=== PATIENT | female | born 1955 | race Caucasian/White ===

== ENCOUNTER 2016-11-11 21:31 | Emergency (ER) | payer MEDICARE ==
[2016-11-11 22:22] LABS: BASO # 0.1 K/mm3 (0.0-0.2); EOS % 0.3 % (0.0-3.0); LARGE UNSTAINED CELL # 0.1 K/mm3 (0.0-0.4); LARGE UNSTAINED CELL % 1.1 % (0.0-4.0); LYMPH # 2.8 K/mm3 (1.5-4.5); LYMPH % 24.1 % (24.0-44.0); MEAN CORPUSCULAR HEMOGLOBIN 26.6 pg (27.0-33.0); MEAN CORPUSCULAR VOLUME 82.9 fl (80.0-96.0); MONO # 0.5 K/mm3 (0.0-0.8); MONO % 4.2 % (0.0-5.0); NEUTROPHILS # 7.8 K/mm3 (1.8-7.7); NEUTROPHILS % 69.3 % (36.0-66.0); PLATELET COUNT, AUTOMATED 208 k/mm3 (150-450); RED CELL DISTRIBUTION WIDTH 13.5 % (11.5-14.5); WHITE BLOOD COUNT 11.2 K/mm3 (4.0-10.0)
--- NOTE | 2016-11-11 22:30 | REPUSA ---
HISTORY: Headache COMPARISON: None. TECHNIQUE: Multiple thin-section contiguous helically-acquired, axially-displayed computed tomographic images of the brain were obtained from the posterior fossa continued through the supratentorial structures, wi th images reviewed at brain, intermediate, and bone windows. FINDINGS: No acute intracranial hemorrhage or evidence of acute transcortical ischemia. No suspicious intra or extra axial fluid collection, middling shift, or evidence of hydrocephalus. The orbits and sella demonstrate no suspicious abnormality. Thickening of of the ethmoidal sinuses and small fluid levels in the sphenoid sinuses most consistent with sinusitis in proper clinical context. Remaining paranasal sinuses, mastoid air cells, and middl e ear cavities are patent. Osseous structures and extra cranial soft tissues demonstrate no abnormalities. IMPRESSION: No acute intracranial abnormality. Thank you for your kind referral of this patient.
[2016-11-11] MEDS ORDERED: METOCLOPRAMIDE INJ 10MG/2ML VIAL (J2765) As Ordered ONE (22:36)
[2016-11-11 22:48] LABS: ANION GAP 12 MEQ/L (8-16); BLOOD UREA NITROGEN 20 MG/DL (7-18); CARBON DIOXIDE LEVEL 23 MEQ/L (21-32); CHLORIDE LEVEL 102 MEQ/L (98-107); GLOMERULAR FILTRATION RATE > 60.0 (>51); GLUCOSE, FASTING 300 MG/DL (70-105); SODIUM LEVEL 137 MEQ/L (136-145)
[2016-11-11] MEDS ORDERED: KETOROLAC 30 MG/ML VIAL (J1885) As Ordered ONE (23:22)
--- NOTE | 2016-11-12 01:01 | EDDOCDS ---
Physician Documentation [facility] Name: Blanca Choe Age: 60 yrs Sex: Female : 1955 Arrival Date: 11/11/2016 Time: 21:31 Bed 9 Private MD: NO PRIMARY PHYSICIAN, . Disposition: 11/12 00:35 Critical Care: Critical care not applicable. pc Disposition: 11/12/16 00:42 Discharged to Home/Self Care. Impression: Acute ethmoidal sinusitis, Headache - due to same. - Condition is Stable. - Discharge Instructions: Sinus Headache, Sinusitis, Adult. - Prescriptions for Fluticasone 50 mcg/actuation Nasal [place], Suspension - inhale 1 spray by INTRANASAL route 2 times per day; 1 bottle. Mucinex 600 mg - take 1 tablet by ORAL route 2 times per day; 30 tablet. - Medication Reconciliation, Local Pharmacy Hours form. - Follow up: Private Physician; When: Upon returning to your home town; Reason: Recheck today's complaints, Continuance of care. - Problem is an ongoing problem. - Symptoms have improved. HPI: 11/11 22:03 This 60 yrs old Female presents to ER via Walkin/Carried/Asstd with complaints of High pc Blood Pressure. 22:03 The history is obtained from the patient, the patient's family/friend. He daughter pc translates for her. She has had a nonproductive cough for 2 weeks, without fevers or chills. She was seen at an urgent care and started on prednisone and Zithromax without effect. She was reseen by the same and started on Augmentin and prednisone again. Her FSBS have been running high because of the steroids and her only DM med is metformin. She has been "coughing so much that she is having headaches". Her BP has been up a few times per day when she has the headache but normalizes when her headache resolves. She denies any nausea or vomiting, focal neuro deficits. She has not been taking any OTCs for hew URI and has not taken anything for he headaches. She had elevated BP a few years ago and was admitted to a hospital in [place], and per her daughter, an MRI showed an area of old stroke. 22:14 She did not undergo any testing whatsoever at the urgent care. pc Historical: - Allergies: Levaquin (Rash); Cymbalta (Vomit); Morphine (Anaphylaxis); - Home Meds: 1. Augmentin 875-125 mg Oral tab every 12 hours 2. metformin 500 mg Oral tab 1 tab 2 times per day 3. Prilosec 40 mg Oral cpDR 1 cap once daily 4. aspirin 81 mg Oral tab 1 tab once daily 5. Fish Oil 500 mg Oral cap daily - PMHx: Diabetes - NIDDM: controlled; CVA on MRI; - PSHx: Appendectomy; - The history from nurses notes was reviewed: and elements of the historical information I have obtained differs from that reported to nursing. - Social history: Smoking status: Patient states former smoker of tobacco. No barriers to communication noted, The patient speaks fluent Faroese. - : The pt / caregiver states he / she is not on anticoagulants. Home medication list is obtained from the patient. - Hospitalizations: : No recent hospitalization is reported. - Exposure Risk Screening:: None identified. - Immunization history:: Last tetanus immunization: up to date. Flu vaccine is not up to date. - Family history: Not pertinent. - Social history:: the patient is a former smoker, the patient does not drink alcohol. ROS: 22:09 All systems are negative except as listed. pc Exam: 22:09 General Appearance: alert, the patient is in mild distress. pc 22:09 EENT: normal eye inspection, ears, nose and throat normal, pharynx normal, mucous membranes moist 22:09 Neck: The exam reveals no acute abnormalities. ROM is normal and painless. No nuchal rigidity is noted.. 22:09 Respiratory: no respiratory distress, normal breath sounds, nonproductive cough. 22:09 CVS: regular pulse rate, regular rhythm, normal S1 and S2, no murmurs, strong peripheral pulses. 22:09 Abdomen: soft, non-tender, no organomegaly, normal bowel sounds. 22:09 Back: normal inspection. 22:09 Skin: skin color is normal, warm, dry. 22:09 Extremities: The extremities have a grossly normal appearance, are non-tender, without acute ROM abnormalities, no pedal edema. 22:09 Neuro: oriented x 3, cranial nerves normal as tested, no motor deficits, no sensory deficits, normal gait, Cerebellar function: normal finger to nose testing, Romberg testing is negative, Deep tendon reflexes are normal. 22:09 Psych: normal mood. Vital Signs: 21:33 BP 196 / 93; Pulse 83; Resp 18 S; Temp 98.5(O); Pulse Ox 97% on R/A; Weight 88.45 kg / gr2 195 lbs (R); Height 5 ft. 5 in. (165.10 cm) (R); Pain 6/10; 22:05 BP 169 / 80 (auto/); Resp 18 S; Pulse Ox 96% on R/A; af2 22:09 Pulse 86 MON; af2 22:20 BP 176 / 85 (auto/); af2 22:28 Pulse 72 MON; af2 22:35 BP 152 / 82 (auto/); af2 22:36 Pulse 72 MON; af2 22:50 BP 167 / 74 (auto/); af2 22:51 Pulse 78 MON; af2 23:05 BP 149 / 68 (auto/); af2 23:06 Pulse 78 MON; af2 23:20 BP 157 / 74 (auto/); af2 23:21 Pulse 68 MON; af2 23:35 BP 128 / 64 (auto/); af2 23:36 Pulse 68 MON; af2 23:50 BP 145 / 72 (auto/); af2 23:51 Pulse 68 MON; af2 11/12 00:05 BP 138 / 72 (auto/); mlc 00:06 Pulse 72 MON; mlc 00:20 BP 154 / 71 (auto/); mlc 00:21 Pulse 70 MON; mlc 00:35 BP 137 / 66 (auto/); mlc 00:36 Pulse 62 MON; mlc 00:59 BP 136 / 70; Pulse 62; Resp 18; Temp 97.1; Pulse Ox 95% ; Pain 4/10; mlc 11/11 21:33 Body Mass Index 32.45 (88.45 kg, 165.10 cm) gr2 MDM: 11/11 21:59 IV Saline Lock ordered. pc 21:59 Obtain sample by nasopharyngeal swab ordered. pc 21:59 Metoclopramide 10 mg IV at 40 mg/hr once over 15 mins ordered. pc 22:00 CBC with Diff Ordered. EDMS 22:00 MED Profile Ordered. EDMS 22:00 A1C Ordered. EDMS 22:00 -Influenza A&B Rapid Antigen - Nose Ordered. EDMS 22:01 Chest, 2 View (pa\\E\\lat) Ordered. EDMS 22:01 CT Head Without Contrast Ordered. EDMS 22:15 Differential Diagnosis: URI, COPD, Pneumonia, post-tussive intermittent headache, pc transient elevated BP, type 2 DM with elevated glucose due to prednisone. Plan: labs, imaging, meds. 23:01 CBC with Diff Reviewed. pc 23:01 MED Profile Reviewed. pc 23:01 A1C Reviewed. pc 23:01 -Influenza A&B Rapid Antigen - Nose Reviewed. pc 23:12 Test interpretation: interpreted by Radiologist and personally reviewed, Head CT; pc ethmoid sinusitis, else nad. 23:13 ketorolac 30 mg IVP once ordered. pc 23:16 Financial registration complete. pm4 23: [facility] Payment Agreement was scanned into [employer] and attached to record. pm4 11/12 00:19 Data reviewed: old medical records, vital signs, nurses notes, lab test results, all pc radiology studies and available results. Test interpretation: LAB - all labs as ordered have been reviewed, interpreted and considered in the overall management of the clinical presentation;. 00:19 Document pain score please ordered. pc 00:20 CT Head Without Contrast Reviewed. pc 00:35 The patient has been re-examined and re-evaluated. The patient's symptoms have markedly pc improved after treatment. Disposition: The historical points, examination findings, and any diagnostic results supporting the provided diagnosis, were discussed with the patient or legal guardian. The need for outpatient follow up with the provider listed on their discharge instructions was discussed. They were encouraged to return to [facility], or the nearest ED, if symptoms worsen/persist, or for any other questions/concerns. Administered Medications: 11/11 22:42 Drug: Metoclopramide 10 mg [metoclopramide 5 mg/mL injection solution] Route: IV; Rate: mlc 40 mg/hr; Infused Over: 15 mins; Site: left antecubital; 23:30 Drug: ketorolac 30 mg [ketorolac 30 mg/mL (1 mL) injection solution (1 mL)] Route: IVP; af2 Site: left antecubital; Signatures: Dispatcher [employer] EDNM Bakari Mane MD MD pc Soosairaj, Rosemary, RN RN rs3 Jyoti Noguera RN RN [facility] [place] Cristopher Rocha, Reg Reg pm4 Jeannette Murphy RN af2 The chart was reviewed and I authenticate all verbal orders and agree with the evaluation and treatment provided.Corrections: (The following items were deleted from the chart) 23:13 23:12 Test interpretation: interpreted by Radiologist and personally reviewed, Head CT; pc no acute disease, pc Attachments: 23:26 [facility] Payment Agreement pm4 MTDD
--- NOTE | 2016-11-12 01:01 | EDDOCDS ---
Nurse's Notes [facility] Name: Blanca Choe Age: 60 yrs Sex: Female : 1955 Arrival Date: 11/11/2016 Time: 21:31 Bed 9 Private MD: NO PRIMARY PHYSICIAN, . Diagnosis: Acute ethmoidal sinusitis;Headache-due to same Presentation: 11/11 21:37 Presenting complaint: daughter states head ache/pressure for 2 days worse today. Was rs3 seen at urgent care twice last week given Zithromax, prednisone with no relief. yesterday given Augmentin. H/o stroke. Adult Sepsis Screening: The patient does not have new or worsening altered mentation. Patient's respiratory rate is less than 22. Systolic blood pressure is greater than 100. Patient has a qSOFA score of 0- Negative Sepsis Screen. Suicide/Homicide risk assessment- the patient denies having any suicidal and/or homicidal ideations and does not present with any other emotional, behavioral or mental health complaints. Status: Patient is not a custodial services manager or dependent. Transition of care: patient was not received from another setting of care. 21:37 Acuity: LUIS ANTONIO Level 3 rs3 21:37 Method Of Arrival: Walkin/Carried/Asstd rs3 Triage Assessment: 21:42 General: Appears in no apparent distress. Pain: Location: forehead. Pt Declines HIV rs3 testing. Historical: - Allergies: Levaquin (Rash); Cymbalta (Vomit); Morphine (Anaphylaxis); - Home Meds: 1. Augmentin 875-125 mg Oral tab every 12 hours 2. metformin 500 mg Oral tab 1 tab 2 times per day 3. Prilosec 40 mg Oral cpDR 1 cap once daily 4. aspirin 81 mg Oral tab 1 tab once daily 5. Fish Oil 500 mg Oral cap daily - PMHx: Diabetes - NIDDM: controlled; CVA on MRI; - PSHx: Appendectomy; - The history from nurses notes was reviewed: and elements of the historical information I have obtained differs from that reported to nursing. - Social history: Smoking status: Patient states former smoker of tobacco. No barriers to communication noted, The patient speaks fluent Ukrainian. - : The pt / caregiver states he / she is not on anticoagulants. Home medication list is obtained from the patient. - Hospitalizations: : No recent hospitalization is reported. - Exposure Risk Screening:: None identified. - Immunization history:: Last tetanus immunization: up to date. Flu vaccine is not up to date. - Family history: Not pertinent. - Social history:: the patient is a former smoker, the patient does not drink alcohol. Screenin:32 Screening information is obtained from the patient. Fall risk: No risks identified. af2 Assistance ADL's: requires no assistance with activities of daily living. Abuse/DV Screen: The patient / caregiver reports he/she is: not in a situation that causes fear, pain or injury. Nutritional screening: No deficits noted. Advance Directives: Currently, there is no health care proxy. home support is adequate. Assessment: 22:42 General: Appears in no apparent distress, comfortable, pt resting comfortably in bed, mlc resp easy/unlabored. IV fluids infusing per order. 23:30 General: Appears in no apparent distress, comfortable, Behavior is cooperative, pt af2 resting on stretcher quietly, family continues at bedside. medicated for pain per order.. 11/12 00:31 Reassessment: Patient appears in no apparent distress at this time. pt resting mlc comfortably in bed. pt talking on phone.. Pain: Pain currently is 4 out of 10 on a pain scale. 00:59 General: Appears in no apparent distress, comfortable, Behavior is cooperative. Pain: mlc Pain currently is 4 out of 10 on a pain scale. Neurological: Level of Consciousness is awake, alert, Oriented to person, place, time. Respiratory: Airway is patent Respiratory effort is even, unlabored, Respiratory pattern is regular. Derm: Skin is normal. Vital Signs: 11/11 21:33 BP 196 / 93; Pulse 83; Resp 18 S; Temp 98.5(O); Pulse Ox 97% on R/A; Weight 88.45 kg gr2 (R); Height 5 ft. 5 in. (165.10 cm) (R); Pain 6/10; 22:05 BP 169 / 80 (auto/); Resp 18 S; Pulse Ox 96% on R/A; af2 22:09 Pulse 86 MON; af2 22:20 BP 176 / 85 (auto/); af2 22:28 Pulse 72 MON; af2 22:35 BP 152 / 82 (auto/); af2 22:36 Pulse 72 MON; af2 22:50 BP 167 / 74 (auto/); af2 22:51 Pulse 78 MON; af2 23:05 BP 149 / 68 (auto/); af2 23:06 Pulse 78 MON; af2 23:20 BP 157 / 74 (auto/); af2 23:21 Pulse 68 MON; af2 23:35 BP 128 / 64 (auto/); af2 23:36 Pulse 68 MON; af2 23:50 BP 145 / 72 (auto/); af2 23:51 Pulse 68 MON; af2 11/12 00:05 BP 138 / 72 (auto/); mlc 00:06 Pulse 72 MON; mlc 00:20 BP 154 / 71 (auto/); mlc 00:21 Pulse 70 MON; mlc 00:35 BP 137 / 66 (auto/); mlc 00:36 Pulse 62 MON; mlc 00:59 BP 136 / 70; Pulse 62; Resp 18; Temp 97.1; Pulse Ox 95% ; Pain 4/10; mlc 11/11 21:33 Body Mass Index 32.45 (88.45 kg, 165.10 cm) gr2 Vitals: 11/11 21:33 Log In Time: November 11, 2016 at 21:33. RN notified that patient meets Red Flag gr2 criteria. ED Course: 21:32 Patient visited by Kimberly Lora. gr2 21:32 Patient moved to Waiting gr2 21:33 NO PRIMARY PHYSICIAN, . is Private Physician. gr2 21:37 Patient visited by Kimberly Lora. gr2 21:37 Patient moved to Pre RCE gr2 21:40 Triage Initiated rs3 21:44 Jeannette Murphy RN is Primary Nurse. kmg1 21:44 Patient moved to 9 kmg1 21:48 Bakari Mane MD is Attending Physician. pc 21:57 Patient visited by Bakari Mane MD. pc 22:11 A1C Sent. af2 22:11 MED Profile Sent. af2 22:11 CBC with Diff Sent. af2 22:12 Patient visited by Jeannette Murphy RN. af2 22:12 Inserted saline lock: 18 gauge in left antecubital area and blood collected. The af2 patient tolerated the procedure well. 22:28 -Influenza A&B Rapid Antigen - Nose Sent. tm5 22:42 Patient visited by Jyoti Noguera RN. mlc 23:05 Patient visited by Manjeet Trinidad PCA. kb5 23:22 CT Head Without Contrast Returned. EDMS 23:23 Patient name changed from Ifeta\S\\S\Grosonja\S\ to Ifeta\S\ \S\Grosonja. EDMS 23:26 [facility] [place] Payment Agreement was scanned into [employer] and attached to record. pm4 23:30 Patient visited by Jeannette Murphy RN. af2 23:32 Patient visited by Jeannette Murphy RN. af2 11/12 00:01 Patient visited by Jeannette Murphy RN. af2 00:32 Patient visited by Jeannette Murphy RN. af2 00:59 The patient / caregiver is instructed regarding the plan of care and ED course. mlc 00:59 Discontinued IV lock intact, bleeding controlled, pressure dressing applied, No mlc redness/swelling at site. No procedures done that require assistance. Administered Medications: 11/11 22:42 Drug: Metoclopramide 10 mg [metoclopramide 5 mg/mL injection solution] Route: IV; Rate: mlc 40 mg/hr; Infused Over: 15 mins; Site: left antecubital; 23:30 Drug: ketorolac 30 mg [ketorolac 30 mg/mL (1 mL) injection solution (1 mL)] Route: IVP; af2 Site: left antecubital; Order Results: Lab Order: CBC with Diff; SPEC'M 11/11/16 22:08 Test: WHITE BLOOD COUNT; Value: 11.2; Range: 4.0-10.0; Abnormal: Above high normal; Units: K/mm3; Status: F Test: RED BLOOD COUNT; Value: 5.13; Range: 4.00-5.40; Units: M/mm3; Status: F Test: HEMOGLOBIN; Value: 13.6; Range: 12.0-16.0; Units: g/dl; Status: F Test: HEMATOCRIT; Value: 42.5; Range: 36.0-47.0; Units: %; Status: F Test: MEAN CORPUSCULAR VOLUME; Value: 82.9; Range: 80.0-96.0; Units: fl; Status: F Test: MEAN CORPUSCULAR HEMOGLOBIN; Value: 26.6; Range: 27.0-33.0; Abnormal: Below low normal; Units: pg; Status: F Test: MEAN CORPUSCULAR HGB CONC; Value: 32.0; Range: 32.0-36.5; Units: g/dl; Status: F Test: RED CELL DISTRIBUTION WIDTH; Value: 13.5; Range: 11.5-14.5; Units: %; Status: F Test: PLATELET COUNT, AUTOMATED; Value: 208; Range: 150-450; Units: k/mm3; Status: F Test: NEUTROPHILS %; Value: 69.3; Range: 36.0-66.0; Abnormal: Above high normal; Units: %; Status: F Test: LYMPH %; Value: 24.1; Range: 24.0-44.0; Units: %; Status: F Test: MONO %; Value: 4.2; Range: 0.0-5.0; Units: %; Status: F Test: EOS %; Value: 0.3; Range: 0.0-3.0; Units: %; Status: F Test: BASO %; Value: 1.0; Range: 0.0-1.0; Units: %; Status: F Test: LARGE UNSTAINED CELL %; Value: 1.1; Range: 0.0-4.0; Units: %; Status: F Test: NEUTROPHILS #; Value: 7.8; Range: 1.8-7.7; Abnormal: Above high normal; Units: K/mm3; Status: F Test: LYMPH #; Value: 2.8; Range: 1.5-4.5; Units: K/mm3; Status: F Test: MONO #; Value: 0.5; Range: 0.0-0.8; Units: K/mm3; Status: F Test: EOS #; Value: 0.0; Range: 0.0-0.50; Units: K/mm3; Status: F Test: BASO #; Value: 0.1; Range: 0.0-0.2; Units: K/mm3; Status: F Test: LARGE UNSTAINED CELL #; Value: 0.1; Range: 0.0-0.4; Units: K/mm3; Status: F Lab Order: MED Profile; SPEC'M 11/11/16 22:08 Test: GLUCOSE, FASTING; Value: 300; Range: 70-105; Abnormal: Above high normal; Units: MG/DL; Status: F Test: BLOOD UREA NITROGEN; Value: 20; Range: 7-18; Abnormal: Above high normal; Units: MG/DL; Status: F Test: CREATININE FOR GFR; Value: 1.00; Range: 0.55-1.02; Units: MG/DL; Status: F Test: GLOMERULAR FILTRATION RATE; Value: > 60.0; Range: >51; Status: F Test: SODIUM LEVEL; Value: 137; Range: 136-145; Units: MEQ/L; Status: F Test: POTASSIUM SERUM; Value: 4.0; Range: 3.5-5.1; Units: MEQ/L; Status: F Test: CHLORIDE LEVEL; Value: 102; Range: 98-107; Units: MEQ/L; Status: F Test: CARBON DIOXIDE LEVEL; Value: 23; Range: 21-32; Units: MEQ/L; Status: F Test: ANION GAP; Value: 12; Range: 8-16; Units: MEQ/L; Status: F Test: CALCIUM LEVEL; Value: 9.0; Range: 8.5-10.1; Units: MG/DL; Status: F Test Note: ; Units are mL/min/1.73 m2 Chronic Kidney Disease Staging per NKF: Stage I & II GFR >=60 Normal to Mildly Decreased Stage III GFR 30-59 Moderately Decreased Stage IV GFR 15-29 Severely Decreased Stage V GFR <15 Very Little GFR Left ESRD GFR <15 on [employer]AMP[employer] Lab Order: A1C; SPEC'M 11/11/16 22:08 Test: HEMOGLOBIN A1c; Value: 7.9; Range: 4.5-6.2; Abnormal: Above high normal; Units: %; Status: F Test: ESTIMATED AVERAGE GLUCOSE; Value: 180; Range: 60-110; Abnormal: Above high normal; Units: MG/DL; Status: F Lab Order: -Influenza A&B Rapid Antigen - Nose; SPEC'M 11/11/16 22:08 Test: INFLUENZA A RAPID SCR by ICA; Value: INFLUENZA A RESULTS NEGATIVE; Status: F Test: INFLUENZA A RAPID SCR by ICA; Value: Comments:; Status: F Test: INFLUENZA B RAPID SCR by ICA; Value: INFLUENZA B RESULTS NEGATIVE; Status: F Test Note: ; The Influenza test is a direct rapid immunoassay for the qualitative detection of Influenza viral antigen. Cell culture (Viral Culture) testing should be considered to confirm NEGATIVE results and to assist in detecting other viruses that can provide similar clinical symptoms. Please contact the lab within 24 hours ([phone]) if confirmatory testing is desired. Radiology Order: CT Head Without Contrast Test: CT Head Without Contrast REASON FOR EXAMINATION: intermittent headache, HTN; ; HISTORY: Headache; COMPARISON: None.; TECHNIQUE:; Multiple thin-section contiguous helically-acquired, axially-displayed computed tomographic images of; the brain were obtained from the posterior fossa continued through the supratentorial structures, wi; th images reviewed at brain, intermediate, and bone windows.; FINDINGS:; No acute intracranial hemorrhage or evidence of acute transcortical ischemia. No suspicious intra or; extra axial fluid collection, middling shift, or evidence of hydrocephalus.; The orbits and sella demonstrate no suspicious abnormality.; Thickening of of the ethmoidal sinuses and small fluid levels in the sphenoid sinuses most consistent; with sinusitis in proper clinical context. Remaining paranasal sinuses, mastoid air cells, and middl; e ear cavities are patent.; Osseous structures and extra cranial soft tissues demonstrate no abnormalities.; IMPRESSION:; No acute intracranial abnormality.; Thank you for your kind referral of this patient.; ; Outcome: 11/12 00:42 Discharge ordered by Provider. pc 00:59 Discharge Assessment: Patient awake, alert and oriented x 3. No cognitive and/or mlc functional deficits noted. Patient verbalized understanding of disposition instructions. patient administered narcotics - no. The following High Risk Discharge criteria are identified: None. Discharged to home ambulatory, with family. Condition: good Condition: stable. Discharge instructions given to patient, family, Instructed on discharge instructions, follow up and referral plans. medication usage, Demonstrated understanding of instructions, medications, Pt was receptive of discharge instructions/ teaching. Prescriptions given X 2. CT Study completed. Property sent home with patient. 01:00 Patient left the ED. [facility] [place] Signatures: Dispatcher [employer] EDMS Bakari Mane MD MD pc Michelle Lovett RN RN km Manjeet Trinidad, ROLY TUCKING MACHINE OPERATOR kb5 Masha Jon RN RN rs3 Kimberly Lora gr2 Jyoti oNguera,RN RN mlc Jeannette Murphy,VERENICE RN af2 Yareli Del Cid,RN RN tm5 Cristopher Rocha, Reg Reg pm4 AISHWARYAD
--- NOTE | 2016-11-12 07:59 | REP ---
PA and lateral chest: There are no comparisons. The lung benz are clear. The cardiac size is normal The stuart, mediastinum, and bony thorax are unremarkable. Impression: Negative PA and lateral chest. Signed by Roque Ayala MD 11/12/2016 07:51 A
--- NOTE | 2016-11-14 02:02 | EDDOCDS ---
Physician Documentation [facility] Name: Blanca Choe Age: 60 yrs Sex: Female : 1955 Arrival Date: 11/11/2016 Time: 21:31 Bed 9 Private MD: NO PRIMARY PHYSICIAN, . Disposition: 11/12 00:35 Critical Care: Critical care not applicable. pc Disposition: 11/12/16 00:42 Discharged to Home/Self Care. Impression: Acute ethmoidal sinusitis, Headache - due to same. - Condition is Stable. - Discharge Instructions: Sinus Headache, Sinusitis, Adult. - Prescriptions for Fluticasone 50 mcg/actuation Nasal [place], Suspension - inhale 1 spray by INTRANASAL route 2 times per day; 1 bottle. Mucinex 600 mg - take 1 tablet by ORAL route 2 times per day; 30 tablet. - Medication Reconciliation, Local Pharmacy Hours form. - Follow up: Private Physician; When: Upon returning to your home town; Reason: Recheck today's complaints, Continuance of care. - Problem is an ongoing problem. - Symptoms have improved. HPI: 11/11 22:03 This 60 yrs old Female presents to ER via Walkin/Carried/Asstd with complaints of High pc Blood Pressure. 22:03 The history is obtained from the patient, the patient's family/friend. He daughter pc translates for her. She has had a nonproductive cough for 2 weeks, without fevers or chills. She was seen at an urgent care and started on prednisone and Zithromax without effect. She was reseen by the same and started on Augmentin and prednisone again. Her FSBS have been running high because of the steroids and her only DM med is metformin. She has been "coughing so much that she is having headaches". Her BP has been up a few times per day when she has the headache but normalizes when her headache resolves. She denies any nausea or vomiting, focal neuro deficits. She has not been taking any OTCs for hew URI and has not taken anything for he headaches. She had elevated BP a few years ago and was admitted to a hospital in [place], and per her daughter, an MRI showed an area of old stroke. 22:14 She did not undergo any testing whatsoever at the urgent care. pc Historical: - Allergies: Levaquin (Rash); Cymbalta (Vomit); Morphine (Anaphylaxis); - Home Meds: 1. Augmentin 875-125 mg Oral tab every 12 hours 2. metformin 500 mg Oral tab 1 tab 2 times per day 3. Prilosec 40 mg Oral cpDR 1 cap once daily 4. aspirin 81 mg Oral tab 1 tab once daily 5. Fish Oil 500 mg Oral cap daily - PMHx: Diabetes - NIDDM: controlled; CVA on MRI; - PSHx: Appendectomy; - The history from nurses notes was reviewed: and elements of the historical information I have obtained differs from that reported to nursing. - Social history: Smoking status: Patient states former smoker of tobacco. No barriers to communication noted, The patient speaks fluent Macedonian. - : The pt / caregiver states he / she is not on anticoagulants. Home medication list is obtained from the patient. - Hospitalizations: : No recent hospitalization is reported. - Exposure Risk Screening:: None identified. - Immunization history:: Last tetanus immunization: up to date. Flu vaccine is not up to date. - Family history: Not pertinent. - Social history:: the patient is a former smoker, the patient does not drink alcohol. ROS: 22:09 All systems are negative except as listed. pc Exam: 22:09 General Appearance: alert, the patient is in mild distress. pc 22:09 EENT: normal eye inspection, ears, nose and throat normal, pharynx normal, mucous membranes moist 22:09 Neck: The exam reveals no acute abnormalities. ROM is normal and painless. No nuchal rigidity is noted.. 22:09 Respiratory: no respiratory distress, normal breath sounds, nonproductive cough. 22:09 CVS: regular pulse rate, regular rhythm, normal S1 and S2, no murmurs, strong peripheral pulses. 22:09 Abdomen: soft, non-tender, no organomegaly, normal bowel sounds. 22:09 Back: normal inspection. 22:09 Skin: skin color is normal, warm, dry. 22:09 Extremities: The extremities have a grossly normal appearance, are non-tender, without acute ROM abnormalities, no pedal edema. 22:09 Neuro: oriented x 3, cranial nerves normal as tested, no motor deficits, no sensory deficits, normal gait, Cerebellar function: normal finger to nose testing, Romberg testing is negative, Deep tendon reflexes are normal. 22:09 Psych: normal mood. Vital Signs: 21:33 BP 196 / 93; Pulse 83; Resp 18 S; Temp 98.5(O); Pulse Ox 97% on R/A; Weight 88.45 kg / gr2 195 lbs (R); Height 5 ft. 5 in. (165.10 cm) (R); Pain 6/10; 22:05 BP 169 / 80 (auto/); Resp 18 S; Pulse Ox 96% on R/A; af2 22:09 Pulse 86 MON; af2 22:20 BP 176 / 85 (auto/); af2 22:28 Pulse 72 MON; af2 22:35 BP 152 / 82 (auto/); af2 22:36 Pulse 72 MON; af2 22:50 BP 167 / 74 (auto/); af2 22:51 Pulse 78 MON; af2 23:05 BP 149 / 68 (auto/); af2 23:06 Pulse 78 MON; af2 23:20 BP 157 / 74 (auto/); af2 23:21 Pulse 68 MON; af2 23:35 BP 128 / 64 (auto/); af2 23:36 Pulse 68 MON; af2 23:50 BP 145 / 72 (auto/); af2 23:51 Pulse 68 MON; af2 11/12 00:05 BP 138 / 72 (auto/); mlc 00:06 Pulse 72 MON; mlc 00:20 BP 154 / 71 (auto/); mlc 00:21 Pulse 70 MON; mlc 00:35 BP 137 / 66 (auto/); mlc 00:36 Pulse 62 MON; mlc 00:59 BP 136 / 70; Pulse 62; Resp 18; Temp 97.1; Pulse Ox 95% ; Pain 4/10; mlc 11/11 21:33 Body Mass Index 32.45 (88.45 kg, 165.10 cm) gr2 MDM: 11/11 21:59 IV Saline Lock ordered. pc 21:59 Obtain sample by nasopharyngeal swab ordered. pc 21:59 Metoclopramide 10 mg IV at 40 mg/hr once over 15 mins ordered. pc 22:00 CBC with Diff Ordered. EDMS 22:00 MED Profile Ordered. EDMS 22:00 A1C Ordered. EDMS 22:00 -Influenza A&B Rapid Antigen - Nose Ordered. EDMS 22:01 Chest, 2 View (pa\\E\\lat) Ordered. EDMS 22:01 CT Head Without Contrast Ordered. EDMS 22:15 Differential Diagnosis: URI, COPD, Pneumonia, post-tussive intermittent headache, pc transient elevated BP, type 2 DM with elevated glucose due to prednisone. Plan: labs, imaging, meds. 23:01 CBC with Diff Reviewed. pc 23:01 MED Profile Reviewed. pc 23:01 A1C Reviewed. pc 23:01 -Influenza A&B Rapid Antigen - Nose Reviewed. pc 23:12 Test interpretation: interpreted by Radiologist and personally reviewed, Head CT; pc ethmoid sinusitis, else nad. 23:13 ketorolac 30 mg IVP once ordered. pc 23:16 Financial registration complete. pm4 23: [facility] Payment Agreement was scanned into [employer] and attached to record. pm4 11/12 00:19 Data reviewed: old medical records, vital signs, nurses notes, lab test results, all pc radiology studies and available results. Test interpretation: LAB - all labs as ordered have been reviewed, interpreted and considered in the overall management of the clinical presentation;. 00:19 Document pain score please ordered. pc 00:20 CT Head Without Contrast Reviewed. pc 00:35 The patient has been re-examined and re-evaluated. The patient's symptoms have markedly pc improved after treatment. Disposition: The historical points, examination findings, and any diagnostic results supporting the provided diagnosis, were discussed with the patient or legal guardian. The need for outpatient follow up with the provider listed on their discharge instructions was discussed. They were encouraged to return to [facility], or the nearest ED, if symptoms worsen/persist, or for any other questions/concerns. 10:55 Radiology Report was scanned into [employer] and attached to record. gb Administered Medications: 11/11 22:42 Drug: Metoclopramide 10 mg [metoclopramide 5 mg/mL injection solution] Route: IV; Rate: mlc 40 mg/hr; Infused Over: 15 mins; Site: left antecubital; 23:30 Drug: ketorolac 30 mg [ketorolac 30 mg/mL (1 mL) injection solution (1 mL)] Route: IVP; af2 Site: left antecubital; Signatures: Dispatcher [employer] EDNE Bakari Mane MD MD pc Barnhardt, Gloria, Reg Reg Masha Bishop RN RN rs3 Jyoti Noguera RN RN [facility] Cristopher Rocha, Reg Reg pm4 Jeannette Murphy RN af2 The chart was reviewed and I authenticate all verbal orders and agree with the evaluation and treatment provided.Corrections: (The following items were deleted from the chart) 23:13 23:12 Test interpretation: interpreted by Radiologist and personally reviewed, Head CT; pc no acute disease, pc Attachments: 23:26 [facility] Payment Agreement pm4 Chart Complete MTDD
--- NOTE | 2016-11-14 02:02 | EDDOCDS ---
Physician Documentation [facility] Name: Blanca Choe Age: 60 yrs Sex: Female : 1955 Arrival Date: 11/11/2016 Time: 21:31 Bed 9 Private MD: NO PRIMARY PHYSICIAN, . Disposition: 11/12 00:35 Critical Care: Critical care not applicable. pc Disposition: 11/12/16 00:42 Discharged to Home/Self Care. Impression: Acute ethmoidal sinusitis, Headache - due to same. - Condition is Stable. - Discharge Instructions: Sinus Headache, Sinusitis, Adult. - Prescriptions for Fluticasone 50 mcg/actuation Nasal [place], Suspension - inhale 1 spray by INTRANASAL route 2 times per day; 1 bottle. Mucinex 600 mg - take 1 tablet by ORAL route 2 times per day; 30 tablet. - Medication Reconciliation, Local Pharmacy Hours form. - Follow up: Private Physician; When: Upon returning to your home town; Reason: Recheck today's complaints, Continuance of care. - Problem is an ongoing problem. - Symptoms have improved. HPI: 11/11 22:03 This 60 yrs old Female presents to ER via Walkin/Carried/Asstd with complaints of High pc Blood Pressure. 22:03 The history is obtained from the patient, the patient's family/friend. He daughter pc translates for her. She has had a nonproductive cough for 2 weeks, without fevers or chills. She was seen at an urgent care and started on prednisone and Zithromax without effect. She was reseen by the same and started on Augmentin and prednisone again. Her FSBS have been running high because of the steroids and her only DM med is metformin. She has been "coughing so much that she is having headaches". Her BP has been up a few times per day when she has the headache but normalizes when her headache resolves. She denies any nausea or vomiting, focal neuro deficits. She has not been taking any OTCs for hew URI and has not taken anything for he headaches. She had elevated BP a few years ago and was admitted to a hospital in [place], and per her daughter, an MRI showed an area of old stroke. 22:14 She did not undergo any testing whatsoever at the urgent care. pc Historical: - Allergies: Levaquin (Rash); Cymbalta (Vomit); Morphine (Anaphylaxis); - Home Meds: 1. Augmentin 875-125 mg Oral tab every 12 hours 2. metformin 500 mg Oral tab 1 tab 2 times per day 3. Prilosec 40 mg Oral cpDR 1 cap once daily 4. aspirin 81 mg Oral tab 1 tab once daily 5. Fish Oil 500 mg Oral cap daily - PMHx: Diabetes - NIDDM: controlled; CVA on MRI; - PSHx: Appendectomy; - The history from nurses notes was reviewed: and elements of the historical information I have obtained differs from that reported to nursing. - Social history: Smoking status: Patient states former smoker of tobacco. No barriers to communication noted, The patient speaks fluent Telugu. - : The pt / caregiver states he / she is not on anticoagulants. Home medication list is obtained from the patient. - Hospitalizations: : No recent hospitalization is reported. - Exposure Risk Screening:: None identified. - Immunization history:: Last tetanus immunization: up to date. Flu vaccine is not up to date. - Family history: Not pertinent. - Social history:: the patient is a former smoker, the patient does not drink alcohol. ROS: 22:09 All systems are negative except as listed. pc Exam: 22:09 General Appearance: alert, the patient is in mild distress. pc 22:09 EENT: normal eye inspection, ears, nose and throat normal, pharynx normal, mucous membranes moist 22:09 Neck: The exam reveals no acute abnormalities. ROM is normal and painless. No nuchal rigidity is noted.. 22:09 Respiratory: no respiratory distress, normal breath sounds, nonproductive cough. 22:09 CVS: regular pulse rate, regular rhythm, normal S1 and S2, no murmurs, strong peripheral pulses. 22:09 Abdomen: soft, non-tender, no organomegaly, normal bowel sounds. 22:09 Back: normal inspection. 22:09 Skin: skin color is normal, warm, dry. 22:09 Extremities: The extremities have a grossly normal appearance, are non-tender, without acute ROM abnormalities, no pedal edema. 22:09 Neuro: oriented x 3, cranial nerves normal as tested, no motor deficits, no sensory deficits, normal gait, Cerebellar function: normal finger to nose testing, Romberg testing is negative, Deep tendon reflexes are normal. 22:09 Psych: normal mood. Vital Signs: 21:33 BP 196 / 93; Pulse 83; Resp 18 S; Temp 98.5(O); Pulse Ox 97% on R/A; Weight 88.45 kg / gr2 195 lbs (R); Height 5 ft. 5 in. (165.10 cm) (R); Pain 6/10; 22:05 BP 169 / 80 (auto/); Resp 18 S; Pulse Ox 96% on R/A; af2 22:09 Pulse 86 MON; af2 22:20 BP 176 / 85 (auto/); af2 22:28 Pulse 72 MON; af2 22:35 BP 152 / 82 (auto/); af2 22:36 Pulse 72 MON; af2 22:50 BP 167 / 74 (auto/); af2 22:51 Pulse 78 MON; af2 23:05 BP 149 / 68 (auto/); af2 23:06 Pulse 78 MON; af2 23:20 BP 157 / 74 (auto/); af2 23:21 Pulse 68 MON; af2 23:35 BP 128 / 64 (auto/); af2 23:36 Pulse 68 MON; af2 23:50 BP 145 / 72 (auto/); af2 23:51 Pulse 68 MON; af2 11/12 00:05 BP 138 / 72 (auto/); mlc 00:06 Pulse 72 MON; mlc 00:20 BP 154 / 71 (auto/); mlc 00:21 Pulse 70 MON; mlc 00:35 BP 137 / 66 (auto/); mlc 00:36 Pulse 62 MON; mlc 00:59 BP 136 / 70; Pulse 62; Resp 18; Temp 97.1; Pulse Ox 95% ; Pain 4/10; mlc 11/11 21:33 Body Mass Index 32.45 (88.45 kg, 165.10 cm) gr2 MDM: 11/11 21:59 IV Saline Lock ordered. pc 21:59 Obtain sample by nasopharyngeal swab ordered. pc 21:59 Metoclopramide 10 mg IV at 40 mg/hr once over 15 mins ordered. pc 22:00 CBC with Diff Ordered. EDMS 22:00 MED Profile Ordered. EDMS 22:00 A1C Ordered. EDMS 22:00 -Influenza A&B Rapid Antigen - Nose Ordered. EDMS 22:01 Chest, 2 View (pa\\E\\lat) Ordered. EDMS 22:01 CT Head Without Contrast Ordered. EDMS 22:15 Differential Diagnosis: URI, COPD, Pneumonia, post-tussive intermittent headache, pc transient elevated BP, type 2 DM with elevated glucose due to prednisone. Plan: labs, imaging, meds. 23:01 CBC with Diff Reviewed. pc 23:01 MED Profile Reviewed. pc 23:01 A1C Reviewed. pc 23:01 -Influenza A&B Rapid Antigen - Nose Reviewed. pc 23:12 Test interpretation: interpreted by Radiologist and personally reviewed, Head CT; pc ethmoid sinusitis, else nad. 23:13 ketorolac 30 mg IVP once ordered. pc 23:16 Financial registration complete. pm4 23: [facility] Payment Agreement was scanned into [employer] and attached to record. pm4 11/12 00:19 Data reviewed: old medical records, vital signs, nurses notes, lab test results, all pc radiology studies and available results. Test interpretation: LAB - all labs as ordered have been reviewed, interpreted and considered in the overall management of the clinical presentation;. 00:19 Document pain score please ordered. pc 00:20 CT Head Without Contrast Reviewed. pc 00:35 The patient has been re-examined and re-evaluated. The patient's symptoms have markedly pc improved after treatment. Disposition: The historical points, examination findings, and any diagnostic results supporting the provided diagnosis, were discussed with the patient or legal guardian. The need for outpatient follow up with the provider listed on their discharge instructions was discussed. They were encouraged to return to [facility], or the nearest ED, if symptoms worsen/persist, or for any other questions/concerns. 10:55 Radiology Report was scanned into [employer] and attached to record. gb Administered Medications: 11/11 22:42 Drug: Metoclopramide 10 mg [metoclopramide 5 mg/mL injection solution] Route: IV; Rate: mlc 40 mg/hr; Infused Over: 15 mins; Site: left antecubital; 23:30 Drug: ketorolac 30 mg [ketorolac 30 mg/mL (1 mL) injection solution (1 mL)] Route: IVP; af2 Site: left antecubital; Signatures: Dispatcher [employer] [facility] Bakari Mane MD MD pc Barnhardt, Gloria, Reg Reg Masha Bishop RN RN rs3 Jyoti Noguera RN RN [facility] [place] Cristopher Rocha, Reg Reg pm4 Jeannette Murphy RN af2 The chart was reviewed and I authenticate all verbal orders and agree with the evaluation and treatment provided.Corrections: (The following items were deleted from the chart) 23:13 23:12 Test interpretation: interpreted by Radiologist and personally reviewed, Head CT; pc no acute disease, pc Attachments: 23:26 [facility] Payment Agreement pm4 Chart Complete MTDD
--- NOTE | 2016-11-14 02:03 | EDDOCDS ---
Nurse's Notes [facility] Name: Blanca Choe Age: 60 yrs Sex: Female : 1955 Arrival Date: 11/11/2016 Time: 21:31 Bed 9 Private MD: NO PRIMARY PHYSICIAN, . Diagnosis: Acute ethmoidal sinusitis;Headache-due to same Presentation: 11/11 21:37 Presenting complaint: daughter states head ache/pressure for 2 days worse today. Was rs3 seen at urgent care twice last week given Zithromax, prednisone with no relief. yesterday given Augmentin. H/o stroke. Adult Sepsis Screening: The patient does not have new or worsening altered mentation. Patient's respiratory rate is less than 22. Systolic blood pressure is greater than 100. Patient has a qSOFA score of 0- Negative Sepsis Screen. Suicide/Homicide risk assessment- the patient denies having any suicidal and/or homicidal ideations and does not present with any other emotional, behavioral or mental health complaints. 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 Transition of care: patient was not received from another setting of care. 21:37 Acuity: LUIS ANTONIO Level 3 rs3 21:37 Method Of Arrival: Walkin/Carried/Asstd rs3 Triage Assessment: 21:42 General: Appears in no apparent distress. Pain: Location: forehead. Pt Declines HIV rs3 testing. Historical: - Allergies: Levaquin (Rash); Cymbalta (Vomit); Morphine (Anaphylaxis); - Home Meds: 1. Augmentin 875-125 mg Oral tab every 12 hours 2. metformin 500 mg Oral tab 1 tab 2 times per day 3. Prilosec 40 mg Oral cpDR 1 cap once daily 4. aspirin 81 mg Oral tab 1 tab once daily 5. Fish Oil 500 mg Oral cap daily - PMHx: Diabetes - NIDDM: controlled; CVA on MRI; - PSHx: Appendectomy; - The history from nurses notes was reviewed: and elements of the historical information I have obtained differs from that reported to nursing. - Social history: Smoking status: Patient states former smoker of tobacco. No barriers to communication noted, The patient speaks fluent Setswana. - : The pt / caregiver states he / she is not on anticoagulants. Home medication list is obtained from the patient. - Hospitalizations: : No recent hospitalization is reported. - Exposure Risk Screening:: None identified. - Immunization history:: Last tetanus immunization: up to date. Flu vaccine is not up to date. - Family history: Not pertinent. - Social history:: the patient is a former smoker, the patient does not drink alcohol. Screenin:32 Screening information is obtained from the patient. Fall risk: No risks identified. af2 Assistance ADL's: requires no assistance with activities of daily living. Abuse/DV Screen: The patient / caregiver reports he/she is: not in a situation that causes fear, pain or injury. Nutritional screening: No deficits noted. Advance Directives: Currently, there is no health care proxy. home support is adequate. Assessment: 22:42 General: Appears in no apparent distress, comfortable, pt resting comfortably in bed, mlc resp easy/unlabored. IV fluids infusing per order. 23:30 General: Appears in no apparent distress, comfortable, Behavior is cooperative, pt af2 resting on stretcher quietly, family continues at bedside. medicated for pain per order.. 11/12 00:31 Reassessment: Patient appears in no apparent distress at this time. pt resting mlc comfortably in bed. pt talking on phone.. Pain: Pain currently is 4 out of 10 on a pain scale. 00:59 General: Appears in no apparent distress, comfortable, Behavior is cooperative. Pain: mlc Pain currently is 4 out of 10 on a pain scale. Neurological: Level of Consciousness is awake, alert, Oriented to person, place, time. Respiratory: Airway is patent Respiratory effort is even, unlabored, Respiratory pattern is regular. Derm: Skin is normal. Vital Signs: 11/11 21:33 BP 196 / 93; Pulse 83; Resp 18 S; Temp 98.5(O); Pulse Ox 97% on R/A; Weight 88.45 kg gr2 (R); Height 5 ft. 5 in. (165.10 cm) (R); Pain 6/10; 22:05 BP 169 / 80 (auto/); Resp 18 S; Pulse Ox 96% on R/A; af2 22:09 Pulse 86 MON; af2 22:20 BP 176 / 85 (auto/); af2 22:28 Pulse 72 MON; af2 22:35 BP 152 / 82 (auto/); af2 22:36 Pulse 72 MON; af2 22:50 BP 167 / 74 (auto/); af2 22:51 Pulse 78 MON; af2 23:05 BP 149 / 68 (auto/); af2 23:06 Pulse 78 MON; af2 23:20 BP 157 / 74 (auto/); af2 23:21 Pulse 68 MON; af2 23:35 BP 128 / 64 (auto/); af2 23:36 Pulse 68 MON; af2 23:50 BP 145 / 72 (auto/); af2 23:51 Pulse 68 MON; af2 11/12 00:05 BP 138 / 72 (auto/); mlc 00:06 Pulse 72 MON; mlc 00:20 BP 154 / 71 (auto/); mlc 00:21 Pulse 70 MON; mlc 00:35 BP 137 / 66 (auto/); mlc 00:36 Pulse 62 MON; mlc 00:59 BP 136 / 70; Pulse 62; Resp 18; Temp 97.1; Pulse Ox 95% ; Pain 4/10; mlc 11/11 21:33 Body Mass Index 32.45 (88.45 kg, 165.10 cm) gr2 Vitals: 11/11 21:33 Log In Time: November 11, 2016 at 21:33. RN notified that patient meets Red Flag gr2 criteria. ED Course: 21:32 Patient visited by Kimberly Lora. gr2 21:32 Patient moved to Waiting gr2 21:33 NO PRIMARY PHYSICIAN, . is Private Physician. gr2 21:37 Patient visited by Kimberly Lora. gr2 21:37 Patient moved to Pre RCE gr2 21:40 Triage Initiated rs3 21:44 Jeannette Murphy RN is Primary Nurse. kmg1 21:44 Patient moved to 9 kmg1 21:48 Bakari Mane MD is Attending Physician. pc 21:57 Patient visited by Bakari Mane MD. pc 22:11 A1C Sent. af2 22:11 MED Profile Sent. af2 22:11 CBC with Diff Sent. af2 22:12 Patient visited by Jeannette Murphy RN. af2 22:12 Inserted saline lock: 18 gauge in left antecubital area and blood collected. The af2 patient tolerated the procedure well. 22:28 -Influenza A&B Rapid Antigen - Nose Sent. tm5 22:42 Patient visited by Jyoti Noguera RN. mlc 23:05 Patient visited by Manjeet Trinidad PCA. kb5 23:22 CT Head Without Contrast Returned. EDMS 23:23 Patient name changed from Ifeta\S\\S\Grosonja\S\ to Ifeta\S\ \S\Grosonja. EDMS 23:26 [facility] Payment Agreement was scanned into [employer] and attached to record. pm4 23:30 Patient visited by Jeannette Murphy RN. af2 23:32 Patient visited by Jeannette Murphy RN. af2 11/12 00:01 Patient visited by Jeannette Murphy RN. af2 00:32 Patient visited by Jeannette Murphy RN. af2 00:59 The patient / caregiver is instructed regarding the plan of care and ED course. mlc 00:59 Discontinued IV lock intact, bleeding controlled, pressure dressing applied, No mlc redness/swelling at site. No procedures done that require assistance. 08:21 Chest, 2 View (pa\E\lat) Returned. EDMS 10:55 Radiology Report was scanned into [employer] and attached to record. gb Administered Medications: 11/11 22:42 Drug: Metoclopramide 10 mg [metoclopramide 5 mg/mL injection solution] Route: IV; Rate: mlc 40 mg/hr; Infused Over: 15 mins; Site: left antecubital; 23:30 Drug: ketorolac 30 mg [ketorolac 30 mg/mL (1 mL) injection solution (1 mL)] Route: IVP; af2 Site: left antecubital; Order Results: Lab Order: CBC with Diff; SPEC'M 11/11/16 22:08 Test: WHITE BLOOD COUNT; Value: 11.2; Range: 4.0-10.0; Abnormal: Above high normal; Units: K/mm3; Status: F Test: RED BLOOD COUNT; Value: 5.13; Range: 4.00-5.40; Units: M/mm3; Status: F Test: HEMOGLOBIN; Value: 13.6; Range: 12.0-16.0; Units: g/dl; Status: F Test: HEMATOCRIT; Value: 42.5; Range: 36.0-47.0; Units: %; Status: F Test: MEAN CORPUSCULAR VOLUME; Value: 82.9; Range: 80.0-96.0; Units: fl; Status: F Test: MEAN CORPUSCULAR HEMOGLOBIN; Value: 26.6; Range: 27.0-33.0; Abnormal: Below low normal; Units: pg; Status: F Test: MEAN CORPUSCULAR HGB CONC; Value: 32.0; Range: 32.0-36.5; Units: g/dl; Status: F Test: RED CELL DISTRIBUTION WIDTH; Value: 13.5; Range: 11.5-14.5; Units: %; Status: F Test: PLATELET COUNT, AUTOMATED; Value: 208; Range: 150-450; Units: k/mm3; Status: F Test: NEUTROPHILS %; Value: 69.3; Range: 36.0-66.0; Abnormal: Above high normal; Units: %; Status: F Test: LYMPH %; Value: 24.1; Range: 24.0-44.0; Units: %; Status: F Test: MONO %; Value: 4.2; Range: 0.0-5.0; Units: %; Status: F Test: EOS %; Value: 0.3; Range: 0.0-3.0; Units: %; Status: F Test: BASO %; Value: 1.0; Range: 0.0-1.0; Units: %; Status: F Test: LARGE UNSTAINED CELL %; Value: 1.1; Range: 0.0-4.0; Units: %; Status: F Test: NEUTROPHILS #; Value: 7.8; Range: 1.8-7.7; Abnormal: Above high normal; Units: K/mm3; Status: F Test: LYMPH #; Value: 2.8; Range: 1.5-4.5; Units: K/mm3; Status: F Test: MONO #; Value: 0.5; Range: 0.0-0.8; Units: K/mm3; Status: F Test: EOS #; Value: 0.0; Range: 0.0-0.50; Units: K/mm3; Status: F Test: BASO #; Value: 0.1; Range: 0.0-0.2; Units: K/mm3; Status: F Test: LARGE UNSTAINED CELL #; Value: 0.1; Range: 0.0-0.4; Units: K/mm3; Status: F Lab Order: MED Profile; SPEC'M 11/11/16 22:08 Test: GLUCOSE, FASTING; Value: 300; Range: 70-105; Abnormal: Above high normal; Units: MG/DL; Status: F Test: BLOOD UREA NITROGEN; Value: 20; Range: 7-18; Abnormal: Above high normal; Units: MG/DL; Status: F Test: CREATININE FOR GFR; Value: 1.00; Range: 0.55-1.02; Units: MG/DL; Status: F Test: GLOMERULAR FILTRATION RATE; Value: > 60.0; Range: >51; Status: F Test: SODIUM LEVEL; Value: 137; Range: 136-145; Units: MEQ/L; Status: F Test: POTASSIUM SERUM; Value: 4.0; Range: 3.5-5.1; Units: MEQ/L; Status: F Test: CHLORIDE LEVEL; Value: 102; Range: 98-107; Units: MEQ/L; Status: F Test: CARBON DIOXIDE LEVEL; Value: 23; Range: 21-32; Units: MEQ/L; Status: F Test: ANION GAP; Value: 12; Range: 8-16; Units: MEQ/L; Status: F Test: CALCIUM LEVEL; Value: 9.0; Range: 8.5-10.1; Units: MG/DL; Status: F Test Note: ; Units are mL/min/1.73 m2 Chronic Kidney Disease Staging per NKF: Stage I & II GFR >=60 Normal to Mildly Decreased Stage III GFR 30-59 Moderately Decreased Stage IV GFR 15-29 Severely Decreased Stage V GFR <15 Very Little GFR Left ESRD GFR <15 on ORAL AND MAXILLOFACIAL PATHOLOGIST Lab Order: A1C; SPEC'M 11/11/16 22:08 Test: HEMOGLOBIN A1c; Value: 7.9; Range: 4.5-6.2; Abnormal: Above high normal; Units: %; Status: F Test: ESTIMATED AVERAGE GLUCOSE; Value: 180; Range: 60-110; Abnormal: Above high normal; Units: MG/DL; Status: F Lab Order: -Influenza A&B Rapid Antigen - Nose; SPEC'M 11/11/16 22:08 Test: INFLUENZA A RAPID SCR by ICA; Value: INFLUENZA A RESULTS NEGATIVE; Status: F Test: INFLUENZA A RAPID SCR by ICA; Value: Comments:; Status: F Test: INFLUENZA B RAPID SCR by ICA; Value: INFLUENZA B RESULTS NEGATIVE; Status: F Test Note: ; The Influenza test is a direct rapid immunoassay for the qualitative detection of Influenza viral antigen. Cell culture (Viral Culture) testing should be considered to confirm NEGATIVE results and to assist in detecting other viruses that can provide similar clinical symptoms. Please contact the lab within 24 hours ([phone]) if confirmatory testing is desired. Radiology Order: Chest, 2 View (pa\E\lat) Test: Chest, 2 View (pa\E\lat) REASON FOR EXAMINATION: Cough; PA and lateral chest:; ; There are no comparisons.; ; The lung benz are clear. The cardiac size is normal; ; The stuart, mediastinum, and bony thorax are unremarkable.; ; Impression:; ; Negative PA and lateral chest.; ; ; Signed by; Roque Ayala MD 11/12/2016 07:51 A; Radiology Order: CT Head Without Contrast Test: CT Head Without Contrast REASON FOR EXAMINATION: intermittent headache, HTN; ; HISTORY: Headache; COMPARISON: None.; TECHNIQUE:; Multiple thin-section contiguous helically-acquired, axially-displayed computed tomographic images of; the brain were obtained from the posterior fossa continued through the supratentorial structures, wi; th images reviewed at brain, intermediate, and bone windows.; FINDINGS:; No acute intracranial hemorrhage or evidence of acute transcortical ischemia. No suspicious intra or; extra axial fluid collection, middling shift, or evidence of hydrocephalus.; The orbits and sella demonstrate no suspicious abnormality.; Thickening of of the ethmoidal sinuses and small fluid levels in the sphenoid sinuses most consistent; with sinusitis in proper clinical context. Remaining paranasal sinuses, mastoid air cells, and middl; e ear cavities are patent.; Osseous structures and extra cranial soft tissues demonstrate no abnormalities.; IMPRESSION:; No acute intracranial abnormality.; Thank you for your kind referral of this patient.; ; Outcome: 11/12 00:42 Discharge ordered by Provider. pc 00:59 Discharge Assessment: Patient awake, alert and oriented x 3. No cognitive and/or mlc functional deficits noted. Patient verbalized understanding of disposition instructions. patient administered narcotics - no. The following High Risk Discharge criteria are identified: None. Discharged to home ambulatory, with family. Condition: good Condition: stable. Discharge instructions given to patient, family, Instructed on discharge instructions, follow up and referral plans. medication usage, Demonstrated understanding of instructions, medications, Pt was receptive of discharge instructions/ teaching. Prescriptions given X 2. CT Study completed. Property sent home with patient. 01:00 Patient left the ED. mlc Signatures: Dispatcher [employer] EDMS Bakari Mane MD MD pc Michelle Lovett, RN RN kmg1 Angi Mcnally, Reg Reg gb Manjeet Trinidad, FRONT END SOFTWARE DEVELOPER FRONT END SOFTWARE DEVELOPER kb5 Masha Jon RN RN rs3 Kimberly Lora gr2 Jyoti NogueraRN RN Jeannette Dorman,RN RN af2 Yareli Del Cid,VERENICE RN tm5 Cristopher Rocha, Reg Reg pm4 Chart Complete LORIE
== END 2016-11-12 01:00 | disposition home or self-care (01) ==
LOC: M ED 21:31
DX: J01.20 Acute ethmoidal sinusitis, unspecified (principal); E11.9 Type 2 diabetes mellitus without complications; Z86.73 Personal history of transient ischemic attack (TIA), and cerebral infarction without residual deficits; Z79.899 Other long term (current) drug therapy; Z79.84 Long term (current) use of oral hypoglycemic drugs; Z79.82 Long term (current) use of aspirin; Z88.1 Allergy status to other antibiotic agents; Z88.5 Allergy status to narcotic agent; Z88.8 Allergy status to other drugs, medicaments and biological substances; Z87.891 Personal history of nicotine dependence
CPT/HCPCS: 36415; 70450; 71020; 80048; 83036; 85025; 87804; 96374; 96375; 99284; J1885; J2765